=== PATIENT | female | born 1945 | race Native Hawaiian/Other Pacific Islander ===

== ENCOUNTER 2018-05-15 19:28 | Emergency (ER) | payer OTHER ==
[~2018-05-15] VITALS: Ht 175.3 cm; Wt 59.0 kg
[2018-05-15] MEDS ORDERED: OXYC5TAB53 PO (19:44)
[2018-05-15 20:46] LABS: PLATELET COUNT 140 K/uL (152-353)
[2018-05-15 23:01] VITALS: BP 117/45; TEMP 98.2
== END 2018-05-15 23:00 | disposition home or self-care (01) ==
LOC: ED 19:28
PROVIDERS: Internal Medicine
DX: N13.30 Unspecified hydronephrosis (principal); M47.896 Other spondylosis, lumbar region; R82.998 Other abnormal findings in urine
CPT/HCPCS: 36415; 80053; 81000; 85027; 87088; 96372; 99283; J1170; J2405

== ENCOUNTER 2021-08-15 13:29 | Outpatient (CLI) | payer OTHER ==
[~2021-08-15 13:29] MED LIST: OXYC5TAB53 PO
== END 2021-08-15 19:47 | disposition home or self-care (01) ==
LOC: RAD 13:29
DX: J44.9 Chronic obstructive pulmonary disease, unspecified (principal)